=== PATIENT | male | born 1945 | race Caucasian/White ===

== ENCOUNTER 2024-03-19 19:56 | Emergency (ER) | payer MEDICARE, OTHER ==
[~2024-03-19] VITALS: Ht 172.7 cm; Wt 79.4 kg
[2024-03-19] MEDS ORDERED: LIDOCAINE HCL 2% 20 ML VIAL ONE (20:59)
[2024-03-19] MEDS ORDERED: BACITRACIN ZINC OINT 15 GM TUBE ONE (21:00)
[2024-03-19] MEDS ORDERED: TDAP DIPH,PERTUSS,TET VAC/PF 0.5 ML DISP.SYRIN IM ONE (21:00)
[2024-03-19] MEDS: LIDOCAINE HCL 1% 20 ML VIAL TP ONE (21:10)
[2024-03-19] MEDS: NEOMY/BACITRA/POLYMYXIN B OINT UD PACKET TP ONE (22:00)
[2024-03-19] MEDS: TDAP DIPH,PERTUSS,TET VAC/PF 0.5 ML DISP.SYRIN IM ONE (22:00)
[2024-03-19 22:24] VITALS: BP 139/70; O2SAT 97
== END 2024-03-19 22:15 | disposition home or self-care (01) ==
LOC: ER 19:58
DX: S01.01XA Laceration without foreign body of scalp, initial encounter (principal); R51.9 Headache, unspecified; W18.39XA Other fall on same level, initial encounter; Y93.89 Activity, other specified; Y92.89 Other specified places as the place of occurrence of the external cause; Y99.8 Other external cause status
CPT/HCPCS: 12004; 70450; 90471; 90715; 99285; J3490; A4606; A4663